=== PATIENT | female | born 1960 | race Two or more races ===

== ENCOUNTER → 2017-03-27 | Outpatient (CLI) | payer MEDICARE, OTHER ==
--- NOTE | 2017-03-27 16:53 | PCVCIMAG ---
APPROVED REPORT Study performed: 03/27/2017 15:46:33 EXAM: Comprehensive 2D, Doppler, and color-flow Echocardiogram Patient Location: Echo lab Status: routine BSA: 2.10 HR: 65 bpm Rhythm: NSR Other Information Study Quality: Technically Limited Technically limited study due to body habitus. Risk Factors: Cardiac Risk Factors: HTN Indications Diabetes #29 Higgins Mitral valve replacement 2D Dimensions LVEF(%): 52.83 (>50%) IVSd: 10.02 (7-11mm) LVDd: 52.52 mm PWd: 8.86 (7-11mm) LVDs: 38.15 (25-40mm) Left Atrium: 38.91 (27-40mm) Aortic Root: 28.37 mm LV Single Plane 4CH: 38.45 % LV Single Plane 2CH: 50.68 %Dorado's LVEF: 44.56 % Biplane EF: 45.8 % Volumes Left Atrial Volume (Systole) Single Plane 4CH: 51.11 mLSingle Plane 2CH: 61.00 mL LA ESV Index: 27.00 mL/m2 Aortic Valve AoV Peak Rober.: 1.61 m/s AO Peak Gr.: 10.32 mmHgLVOT Max P.94 mmHg LVOT Max V: 0.99 m/s Mitral Valve MV Peak Gr.: 19.07 mmHg MV Mean Gr.: 5.17 mmHg MV Max Rober.: 2.18 m/s MV Mean Rober.: 0.97 m/s MV VTI: 574.66 mm MV PHT: 122.97 ms MVA (PHT): 1.79 cm2 IVRT: 93.43 ms Pulmonary Valve PV Peak Rober.: 0.91 m/sPV Peak Gr.: 3.29 mmHg Pulmonary Vein P Vein S: 0.30 m/sP Vein A: 0.28 m/s P Vein D: 0.56 m/sP Vein A Dur.: 190.3 msec P Vein S/D Ratio: 0.54 Tricuspid Valve TR Peak Rober.: 3.14 m/s TR Peak Gr.: 39.50 mmHg Left Ventricle The left ventricle is normal size. There is normal LV segmental wall motion. There is normal left ventricular wall thickness. Left ventricular systolic function is normal. The left ventricular ejection fraction is within the normal range. LVEF is 50-55%. Unable to assess Right Ventricle The right ventricle is normal size. There is normal right ventricular wall thickness. The right ventricular systolic function is normal. Atria The left atrium size is normal. The right atrium size is normal. Aortic Valve The aortic valve is normal in structure, trileaflet. No aortic regurgitation is present. There is no aortic valvular stenosis. Mitral Valve #29 Higgins bioprosthetic in the mitral valve replacement. Peak gradient 17mm, mean gradient 5mmHg Mild mitral regurgitation. Mild mitral stenosis. Tricuspid Valve The tricuspid valve is normal in structure. There is no tricuspid valve regurgitation noted. Pulmonic Valve The pulmonary valve is normal in structure. Moderate pulmonic regurgitation with PAP 47 mmHg. Great Vessels The aortic root is normal in size. IVC is normal in size and collapses with >50% inspiration Pericardium There is no pericardial effusion. <Conclusion> Left ventricular systolic function is normal. LVEF is 50-55%. Normal LV segmental wall motion. Disrupted mitral chordal structures seen in left ventricle. The aortic valve is normal in structure, trileaflet. No aortic valvular stenosis or insufficiency. #29 Higgins bioprosthetic in the mitral valve replacement. Peak gradient 17mm, mean gradient 5mmHg. Mild mitral regurgitation. Pulmonary artery pressure of 47mmHg There is no pericardial effusion.
== END | disposition home or self-care (01) ==
LOC: PCVCCLINIC 15:15
PROVIDERS: ATTEND Internal Medicine
DX: I34.0 Nonrheumatic mitral (valve) insufficiency (principal); I37.1 Nonrheumatic pulmonary valve insufficiency; E11.9 Type 2 diabetes mellitus without complications; E78.5 Hyperlipidemia, unspecified; G47.33 Obstructive sleep apnea (adult) (pediatric); J45.909 Unspecified asthma, uncomplicated; I11.0 Hypertensive heart disease with heart failure; I50.9 Heart failure, unspecified; E03.9 Hypothyroidism, unspecified; M19.90 Unspecified osteoarthritis, unspecified site; F41.9 Anxiety disorder, unspecified; F32.9 Major depressive disorder, single episode, unspecified; K21.9 Gastro-esophageal reflux disease without esophagitis; Z90.49 Acquired absence of other specified parts of digestive tract; Z95.3 Presence of xenogenic heart valve; Z79.82 Long term (current) use of aspirin; Z79.899 Other long term (current) drug therapy; Z79.4 Long term (current) use of insulin; Z88.8 Allergy status to other drugs, medicaments and biological substances
CPT/HCPCS: 80061; 93005; 93306; G0463

== ENCOUNTER → 2018-10-24 | Outpatient (CLI) | payer MEDICARE, OTHER | END | disposition home or self-care (01) | LOC: PCVCCLINIC 13:23 | PROVIDERS: ATTEND Internal Medicine | DX: E78.5 Hyperlipidemia, unspecified (principal); E11.9 Type 2 diabetes mellitus without complications; G47.33 Obstructive sleep apnea (adult) (pediatric); J45.909 Unspecified asthma, uncomplicated; E03.9 Hypothyroidism, unspecified; I25.2 Old myocardial infarction; M19.90 Unspecified osteoarthritis, unspecified site; I50.9 Heart failure, unspecified; R94.31 Abnormal electrocardiogram [ECG] [EKG]; R06.09 Other forms of dyspnea; K21.9 Gastro-esophageal reflux disease without esophagitis; Z79.82 Long term (current) use of aspirin; Z79.899 Other long term (current) drug therapy; Z95.3 Presence of xenogenic heart valve; Z88.8 Allergy status to other drugs, medicaments and biological substances | CPT/HCPCS: 36415; 80061; 93005; G0463 ==